=== PATIENT | female | born 1940 | race African-American/Black ===

== ENCOUNTER 2018-08-15 10:17 | Emergency (ER) | payer OTHER ==
[~2018-08-15] VITALS: Ht 154.9 cm; Wt 94.8 kg
[~2018-08-15 10:17] MED LIST: ALBU1.25 IH; ATOR20TA58 PO; CLOP75TA57 PO; INSU100I13 SQ; INSU100I17 SQ; LABE100T5 PO; LOSA-73 PO; LOSA100T14 PO; METF10007 PO; METO-269 PO; METO100T7 PO; RANI150T2 PO
[2018-08-15 10:20] VITALS: BP 154/84
--- NOTE | 2018-08-15 10:44 | PHYS DOC ---
Past Medical History Past Medical History: Diabetes-Type II, Hypertension, Other Additional Past Medical Histor: SHINGLES,narcolepsy Past Surgical History: Appendectomy, Hysterectomy, Other Alcohol Use: None Drug Use: None Adult General Chief Complaint Chief Complaint: SHINGLES HPI HPI Patient is a 77 year old female presented to the ER today for evaluation of painful rash on right side chest that has been there for 8 days. Patient said the rash has been there for 8 days but the pain started about 3 days ago. No shortness of air, no cough, no fever. Review of Systems Review of Systems Constitutional: Denies fever or chills [] Eyes: Denies change in visual acuity, redness, or eye pain [] HENT: Denies nasal congestion or sore throat [] Respiratory: Denies cough or shortness of breath [] Cardiovascular: No additional information not addressed in HPI [] GI: Denies abdominal pain, nausea, vomiting, bloody stools or diarrhea [] : Denies dysuria or hematuria [] Musculoskeletal: Denies back pain or joint pain [] Integument: POSITIVE FOR PAINFUL RASH ON RIGHT SIDE CHEST Neurologic: Denies headache, focal weakness or sensory changes [] Endocrine: Denies polyuria or polydipsia [] All other systems were reviewed and found to be within normal limits, except as documented in this note. Allergies Allergies Allergies Coded Allergies Type Severity Reaction Last Updated Verified ibuprofen Allergy Intermediate rash 11/26/15 Yes Physical Exam Physical Exam Constitutional: Well developed, well nourished, no acute distress, non-toxic appearance. [] HENT: Normocephalic, atraumatic, bilateral external ears normal, Eyes: PERRLA, EOMI, conjunctiva normal, no discharge. [] Neck: Normal range of motion, no tenderness, supple, no stridor. [] Cardiovascular:Heart rate regular rhythm, no murmur [] Lungs & Thorax: Bilateral breath sounds clear to auscultation [] Abdomen: Bowel sounds normal, soft, no tenderness, no masses, no pulsatile masses. [] Skin: TENDER ULCERATED LESIONS ON RIGHT ANTERIOR CHEST BELOW RIGHT BREAST, NOT CROSSING MIDLINE. Back: No tenderness, no CVA tenderness. [] Extremities: No tenderness, no cyanosis, no clubbing, ROM intact, no edema. [] Neurologic: Alert and oriented X 3, normal motor function, normal sensory function, no focal deficits noted. [] Psychologic: Affect normal, judgement normal, mood normal. [] Current Patient Data Vital Signs Vital Signs Date Time Temp Pulse Resp B/P (MAP) Pulse Ox O2 Delivery O2 Flow Rate FiO2 08/15/18 10:20 98.6 81 18 154/84 (107) 96 Room Air 98.6 EKG EKG [] Radiology/Procedures Radiology/Procedures [] Course & Med Decision Making Course & Med Decision Making Pertinent Labs and Imaging studies reviewed. (See chart for details) [] Dragon Disclaimer Dragon Disclaimer This electronic medical record was generated, in whole or in part, using a voice recognition dictation system. Departure Departure Impression: Primary Impression: Shingles Disposition: HOME, SELF-CARE Condition: STABLE Referrals: SARTHAK FONSECA MD (PCP) follow up with your doctor next week for reevaluation Patient Instructions: Shingles Scripts Hydrocodone/Apap 5-325 (NORCO 5-325 TABLET) 1 Each Tablet 1 TAB PO PRN Q6HRS PRN for PAIN, #15 TAB 0 Refills Prov: ZULLY BENJAMIN DO 08/15/18 Acyclovir (ACYCLOVIR) 800 Mg Tablet 1 TAB PO 5XDAY for 7 Days, #35 TAB Prov: ZULLY BENJAMIN DO 08/15/18 ZULLY BENJAMIN DO Aug 15, 2018 10:44
[2018-08-15] MEDS ORDERED: ACYC800T PO (10:59)
[2018-08-15] MEDS ORDERED: HYDR-3164 PO (10:59)
== END 2018-08-15 11:02 | disposition home or self-care (01) ==
LOC: ER 10:17
DX: B02.9 Zoster without complications (principal); E11.9 Type 2 diabetes mellitus without complications; I10 Essential (primary) hypertension; Z88.8 Allergy status to other drugs, medicaments and biological substances
CPT/HCPCS: 99283

== ENCOUNTER 2018-11-19 19:18 | Emergency (ER) | payer OTHER ==
[~2018-11-19] VITALS: Ht 157.5 cm; Wt 89.8 kg
[~2018-11-19 19:18] MED LIST changes: +ACYC800T PO; +HYDR-3164 PO
[2018-11-19] MEDS ORDERED: MECLIZINE HCL 12.5 MG TABLET. PO ONE (20:00)
[2018-11-19] MEDS ORDERED: IV NORMAL SALINE 1000ML BAG 1,000 ML IV ONE (20:00)
[2018-11-19 20:04] LABS: BASO % 0 % (0-3); EOS # 0.2 x10^3/uL (0.0-0.7); EOS % 2 % (0-3); HEMATOCRIT 40.8 % (36.0-47.0); HEMOGLOBIN 13.5 g/dL (12.0-15.5); LYMPH # 2.3 x10^3/uL (1.0-4.8); LYMPH % 18 % (24-48); MEAN CORPUSCULAR HEMOGLOBIN 28 pg (25-35); MEAN CORPUSCULAR HGB CONC 33 g/dL (31-37); MEAN CORPUSCULAR VOLUME 84 fL (79-100); MONO % 8 % (0-9); NEUT # 8.9 x10^3/uL (1.8-7.7); NEUT % 72 % (31-73); PLATELET COUNT 291 x10^3/uL (140-400); RED BLOOD COUNT 4.87 x10^6/uL (3.50-5.40); RED CELL DISTRIBUTION WIDTH 15.2 % (11.5-14.5); WHITE BLOOD COUNT 12.4 x10^3/uL (4.0-11.0)
[2018-11-19 20:14] LABS: PROTHROMBIN TIME PATIENT 12.2 SEC (11.7-14.0)
[2018-11-19 20:19] LABS: GFR 65.2; POTASSIUM 4.1 mmol/L (3.5-5.1)
[2018-11-19 20:25] LABS: ALBUMIN 3.3 g/dL (3.4-5.0); ALBUMIN/GLOBULIN RATIO 0.8 (1.0-1.7); MAGNESIUM 1.3 mg/dL (1.8-2.4); TOTAL BILIRUBIN 0.4 mg/dL (0.2-1.0); TOTAL PROTEIN 7.6 g/dL (6.4-8.2)
[2018-11-19 20:31] LABS: CREATINE KINASE 66 U/L (26-192)
--- NOTE | 2018-11-19 20:32 | RAD ---
Exam: CT head INDICATION: Dizziness TECHNIQUE: Sequential axial images through the head were obtained without the administration of IV contrast. Comparisons: MRI brain 05/11/2018 FINDINGS: No focal parenchymal lesion or hemorrhage is identified. There is no midline shift or sulcal effacement. No acute vascular territory infarction is identified. Villalba-white distinction is preserved. The ventricular system is within normal limits without compression hydrocephalus. The basal cisterns are well maintained. The visualized portions of the paranasal sinuses and mastoid air cells are well-pneumatized. No acute fractures. IMPRESSION: No acute intracranial abnormality. Exposure: One or more of the following in the visualized dose reduction techniques were utilized for this examination: 1. Automated exposure control 2. Adjustment of the MA and/or KV according to patient size Use of iterative of reconstructive technique Electronically signed by: Laura Farrell MD (11/19/2018 8:29 PM) [facility]
--- NOTE | 2018-11-19 20:38 | RAD ---
Exam: Chest one view INDICATION: Dizziness TECHNIQUE: Frontal view of the chest Comparisons: None FINDINGS: The cardiomediastinal silhouette and pulmonary vessels are within normal limits. The lung and pleural spaces are clear. IMPRESSION: No acute cardiopulmonary process. Electronically signed by: Laura Farrell MD (11/19/2018 8:35 PM) [facility]
--- NOTE | 2018-11-19 21:19 | PHYS DOC ---
Past Medical History Past Medical History: Diabetes-Type II, Hypertension, Other Additional Past Medical Histor: SHINGLES,narcolepsy (ESTEFANIA CRAVEN APRN) Past Surgical History: Appendectomy, Hysterectomy, Other (ESTEFANIA CRAVEN APRN) Alcohol Use: None Drug Use: None (ESTEFANIA CRAVEN APRN) Adult General Chief Complaint Chief Complaint: DIZZY/LIGHT HEADED HPI HPI Patient is a 78 year old female with history of diabetes type 2, hypertension, who presents to the ED today complaining of dizziness that began when she was walking into her laundry room at 4 PM. Patient states the dizziness occurred while walking she states the dizziness is still present and she seems to feel it only when she is walking. Denies any nausea, vomiting. Denies any sensation of the room spinning or herself spinning. (ESTEFANIA CRAVEN APRN) Review of Systems Review of Systems Constitutional: Denies fever or chills [] Eyes: Denies change in visual acuity, redness, or eye pain [] HENT: Denies nasal congestion or sore throat [] Respiratory: Denies cough or shortness of breath [] Cardiovascular: No additional information not addressed in HPI [] GI: Denies abdominal pain, nausea, vomiting, bloody stools or diarrhea [] : Denies dysuria or hematuria [] Musculoskeletal: Denies back pain or joint pain [] Integument: Denies rash or skin lesions [] Neurologic: Reports dizziness. Denies headache, focal weakness or sensory changes [] All other systems were reviewed and found to be within normal limits, except as documented in this note. (ESTEFANIA CRAVEN APRN) Current Medications Current Medications Current Medications Medications (Trade) Dose Ordered Sig/Aurea Start Time Stop Time Status Last Admin Dose Admin Magnesium Sulfate/ Dextrose 100 ml @ 100 mls/hr 1X ONCE 11/19/18 22:00 11/19/18 22:59 DC 11/19/18 21:51 100 MLS/HR Meclizine HCl (Antivert) 25 mg 1X ONCE 11/19/18 20:00 11/19/18 20:01 DC 11/19/18 20:05 25 MG Sodium Chloride 1,000 ml @ 1,000 mls/hr 1X ONCE 11/19/18 20:00 11/19/18 20:59 DC 11/19/18 20:06 1,000 MLS/HR (LENAGHAN,LEIGH MD) Allergies Allergies Allergies Coded Allergies Type Severity Reaction Last Updated Verified ibuprofen Allergy Intermediate rash 11/26/15 Yes (LEIGH COVINGTON MD) Physical Exam Physical Exam Constitutional: Well developed, well nourished, no acute distress, non-toxic appearance. [] HENT: Normocephalic, atraumatic, bilateral external ears normal, oropharynx moist, no oral exudates, nose normal. [] Eyes: PERRLA, EOMI, conjunctiva normal, no discharge. [] Neck: Normal range of motion, no tenderness, supple, no stridor. [] Cardiovascular:Heart rate regular rhythm, no murmur [] Lungs & Thorax: Bilateral breath sounds clear to auscultation [] Abdomen: Bowel sounds normal, soft, no tenderness, no masses, no pulsatile ma sses. [] Skin: Warm, dry, no erythema, no rash. [] Back: No tenderness, no CVA tenderness. [] Extremities: No tenderness, no cyanosis, no clubbing, ROM intact, no edema. [] Neurologic: Alert and oriented X 3, normal motor function, normal sensory function, no focal deficits noted. Cranial nerves II through XII intact Psychologic: Affect normal, judgement normal, mood normal. [] (ESTEFANIA CRAVEN APRN) Current Patient Data Vital Signs Vital Signs Date Time Temp Pulse Resp B/P (MAP) Pulse Ox O2 Delivery O2 Flow Rate FiO2 11/19/18 22:55 78 16 98 11/19/18 19:24 98.2 147/67 (93) Room Air 98.2 (LEIGH COVINGTON MD) Lab Values Laboratory Tests Test 11/19/18 19:29 11/19/18 19:40 11/19/18 21:18 Glucose (Fingerstick) 257 mg/dL (70-99) H White Blood Count 12.4 x10^3/uL (4.0-11.0) H Red Blood Count 4.87 x10^6/uL (3.50-5.40) Hemoglobin 13.5 g/dL (12.0-15.5) Hematocrit 40.8 % (36.0-47.0) Mean Corpuscular Volume 84 fL (79-100) Mean Corpuscular Hemoglobin 28 pg (25-35) Mean Corpuscular Hemoglobin Concent 33 g/dL (31-37) Red Cell Distribution Width 15.2 % (11.5-14.5) H Platelet Count 291 x10^3/uL (140-400) Neutrophils (%) (Auto) 72 % (31-73) Lymphocytes (%) (Auto) 18 % (24-48) L Monocytes (%) (Auto) 8 % (0-9) Eosinophils (%) (Auto) 2 % (0-3) Basophils (%) (Auto) 0 % (0-3) Neutrophils # (Auto) 8.9 x10^3/uL (1.8-7.7) H Lymphocytes # (Auto) 2.3 x10^3/uL (1.0-4.8) Monocytes # (Auto) 1.0 x10^3/uL (0.0-1.1) Eosinophils # (Auto) 0.2 x10^3/uL (0.0-0.7) Basophils # (Auto) 0.0 x10^3/uL (0.0-0.2) Prothrombin Time 12.2 SEC (11.7-14.0) Prothrombin Time INR 0.9 (0.8-1.1) Sodium Level 137 mmol/L (136-145) Potassium Level 4.1 mmol/L (3.5-5.1) Chloride Level 98 mmol/L (98-107) Carbon Dioxide Level 29 mmol/L (21-32) Anion Gap 10 (6-14) Blood Urea Nitrogen 16 mg/dL (7-20) Creatinine 1.0 mg/dL (0.6-1.0) Estimated GFR (Cockcroft-Gault) 65.2 BUN/Creatinine Ratio 16 (6-20) Glucose Level 280 mg/dL (70-99) H Calcium Level 9.0 mg/dL (8.5-10.1) Magnesium Level 1.3 mg/dL (1.8-2.4) L Total Bilirubin 0.4 mg/dL (0.2-1.0) Aspartate Amino Transferase (AST) 13 U/L (15-37) L Alanine Aminotransferase (ALT) 17 U/L (14-59) Alkaline Phosphatase 122 U/L (46-116) H Creatine Kinase 66 U/L (26-192) Creatine Kinase MB (Mass) < 0.5 ng/mL (0.0-3.6) Creatine Kinase MB Relative Index % (0-4) Troponin I Quantitative < 0.017 ng/mL (0.000-0.055) OK-Qyf-F-Type Natriuretic Peptide 587 pg/mL (0-449) H Total Protein 7.6 g/dL (6.4-8.2) Albumin 3.3 g/dL (3.4-5.0) L Albumin/Globulin Ratio 0.8 (1.0-1.7) L Thyroid Stimulating Hormone (TSH) 2.208 uIU/mL (0.358-3.74) Urine Color Yellow Urine Clarity Clear Urine pH 7.0 Urine Specific [place] 1.010 Urine Protein Negative mg/dL (NEG-TRACE) Urine Glucose (UA) 100 mg/dL (NEG) Urine Ketones (Stick) Negative mg/dL (NEG) Urine Blood Negative (NEG) Urine Nitrite Negative (NEG) Urine Bilirubin Negative (NEG) Urine Urobilinogen Dipstick 1.0 mg/dL (0.2 mg/dL) Urine Leukocyte Esterase Trace (NEG) Urine RBC 0 /HPF (0-2) Urine WBC 1-4 /HPF (0-4) Urine Squamous Epithelial Cells Occ /LPF Urine Bacteria Few /HPF (0-FEW) Urine Opiates Screen Neg (NEG) Urine Methadone Screen Neg (NEG) Urine Barbiturates Neg (NEG) Urine Phencyclidine Screen Neg (NEG) Urine Amphetamine/Methamphetamine Neg (NEG) Urine Benzodiazepines Screen Neg (NEG) Urine Cocaine Screen Neg (NEG) Urine Cannabinoids Screen Neg (NEG) Urine Ethyl Alcohol Neg (NEG) Laboratory Tests 11/19/18 19:40 Laboratory Tests 11/19/18 19:40 (LEIGH COVINGTON MD) EKG EKG [address] C[place] sinus rhythm HR 84 no STEMI[] (ESTEFANIA CRAVEN APRN) Radiology/Procedures Radiology/Procedures []PROCEDURE: PORTABLE CHEST 1V Exam: Chest one view INDICATION: Dizziness TECHNIQUE: Frontal view of the chest Comparisons: None FINDINGS: The cardiomediastinal silhouette and pulmonary vessels are within normal limits. The lung and pleural spaces are clear. IMPRESSION: No acute cardiopulmonary process. Electronically signed by: Laura Cruz MD (11/19/2018 8:35 PM) [facility] DICTATED and SIGNED BY: LAURA CRUZ MD DATE: 11/19/182034 PROCEDURE: CT HEAD WO CONTRAST Exam: CT head INDICATION: Dizziness TECHNIQUE: Sequential axial images through the head were obtained without the administration of IV contrast. Comparisons: MRI brain 05/11/2018 FINDINGS: No focal parenchymal lesion or hemorrhage is identified. There is no midline shift or sulcal effacement. No acute vascular territory infarction is identified. Villalba-white distinction is preserved. The ventricular system is within normal limits without compression hydrocephalus. The basal cisterns are well maintained. The visualized portions of the paranasal sinuses and mastoid air cells are well-pneumatized. No acute fractures. IMPRESSION: No acute intracranial abnormality. Exposure: One or more of the following in the visualized dose reduction techniques were utilized for this examination: 1. Automated exposure control 2. Adjustment of the MA and/or KV according to patient size Use of iterative of reconstructive technique Electronically signed by: Laura Cruz MD (11/19/2018 8:29 PM) [facility] DICTATED and SIGNED BY: LAURA CRUZ MD DATE: 11/19/182028 (ESTEFANIA CRAVEN APRN) Course & Med Decision Making Course & Med Decision Making Pertinent Labs and Imaging studies reviewed. (See chart for details) This is a 78-year-old male patient who presents to the ED today with dizziness on ambulation that began this evening around 4 PM. EKG is negative, CT of the head is negative, chest x-ray is negative. CBC with a WBC of 12.4, CMP with glucose of 280-history of diabetes type 2, anion gap is normal, magnesium 1.3, patient was given IV magnesium in the ED. UA negative for infection. Patient was also given IV fluids and meclizine. On reassessment patient states she feeling normal, she states she does not have any dizziness. We did get her up in the ED to ambulate. She has ambulated with no complaints of dizziness. She is requesting to be discharged to home with meclizine. Prescription was given. Follow-up with her PCP next week. (ESTEFANIA CRAVEN APRN) Course & Med Decision Making Staff Physician Addendum: I was working in the ER during the course of this patient's visit. I was cristobal ilable for consultation as needed, but I was not directly involved in the care of this patient. (LEIGH COVINGTON MD) Dragon Disclaimer Dragon Disclaimer This electronic medical record was generated, in whole or in part, using a voice recognition dictation system. (ESTEFANIA CRAVEN APRN) Departure Departure Impression: Primary Impression: Vertigo Disposition: HOME, SELF-CARE Condition: STABLE Referrals: SARTHAK FONSECA MD (PCP) follow up next week Patient Instructions: Vertigo, [id number] Additional Instructions: You were evaluated in the emergency room for dizziness. Please use the prescribed medication as needed for dizziness. Follow-up with your doctor next week. Come back to the ED at any point symptoms worsen. Scripts Meclizine Hcl (MECLIZINE HCL) 25 Mg Tablet 1 TAB PO TID PRN for DIZZINESS, #20 TAB Prov: ESTEFANIA CRAVEN APRN 11/19/18 ESTEFANIA CRAVEN APRN Nov 19, 2018 21:18 LEIGH COVINGTON MD Nov 21, 2018 18:27
[2018-11-19 21:30] LABS: BILIRUBIN,URINE NEGATIVE (NEG); CLARITY,URINE CLEAR; COLOR,URINE YELLOW; NITRITE,URINE NEGATIVE (NEG); PROTEIN,URINE NEGATIVE (NEG-TRACE)
[2018-11-19 21:36] LABS: BACTERIA,URINE FEW /HPF (0-FEW); BARBITURATES NEG (NEG); BENZODIAZEPINES NEG (NEG); CANNABINOIDS NEG (NEG); COCAINE NEG (NEG); METHADONE NEG (NEG); OPIATES NEG (NEG); PHENCYCLIDINE NEG (NEG); RBC,URINE 0 /HPF (0-2); SQUAMOUS EPITHELIAL CELL,UR OCC /LPF
[2018-11-19 21:42] LABS: AMPHETAMINE/METHAMPHETAMINE NEG (NEG)
[2018-11-19] MEDS ORDERED: MAGNESIUM SULFATE 1GM 100 ML IV ONE (22:00)
[2018-11-19] MEDS ORDERED: MECL25TA3 PO (22:35)
[2018-11-19 22:55] VITALS: BP 159/75
--- NOTE | 2018-11-20 11:21 | EKG ---
[facility] [address] [place] [address] Test Date: 2018-11-19 Test Time: 19:27:06 Pat Name: ANGELITA COELHO Department: Room: Gender: F Cryptologic Technician Technical: : [id number] Requested By: ESTEFANIA CRAVEN Order Number: [id number] Reading MD: Measurements Intervals [place] Rate: 84 P: 33 TX: 136 QRS: -12 QRSD: 86 T: 10 QT: 380 QTc: 452 Interpretive Statements SINUS RHYTHM LEFTWARD AXIS QRS(T) CONTOUR ABNORMALITY CONSIDER ANTEROLATERAL MYOCARDIAL DAMAGE POSSIBLY ABNORMAL ECG RI6.01 Unconfirmed report No previous ECG available for comparison
== END 2018-11-19 23:03 | disposition home or self-care (01) ==
LOC: ER 19:18
DX: R42 Dizziness and giddiness (principal); E11.9 Type 2 diabetes mellitus without complications; I10 Essential (primary) hypertension; Z90.89 Acquired absence of other organs; Z90.710 Acquired absence of both cervix and uterus
CPT/HCPCS: 36415; 70450; 71045; 80053; 80307; 81001; 82553; 82962; 83735; 83880; 84443; 84484; 85025; 85610; 93005; 96361; 96365; 99285; J3475; J7030; J8597